=== PATIENT | female | born 1965 | race Caucasian/White ===

== ENCOUNTER 2016-12-18 13:02 | Emergency (ER) | payer MEDICAID ==
--- NOTE | 2016-12-18 13:27 | EDPHY ---
H & P Time Seen by Provider: 12/18/16 13:18 HPI/ROS: CHIEF COMPLAINT: Hematemesis HISTORY OF PRESENT ILLNESS: This patient is a 51 year old female with history of peptic ulcer disease who presents to the Emergency Department complaining of acute hematemesis presenting one week prior to the arrival. She describes the first episode as mostly bright red blood which has since subsided to minimal blood mixed with undigested food. She was prescribed Protonix and Zofran by her PCP last week which has helped to improve the frequency of her vomiting and lessened the amount of blood in her vomit. Her last vomiting episode was yesterday with minimal blood. She also reports one episode of black diarrhea yesterday and today. She denies any additional complaints. 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 She has no additional pertinent medical history. REVIEW OF SYSTEMS: Constitutional: No fever, no chills Eyes: No visual changes ENT: No sore throat Respiratory: No cough, no shortness of breath Cardiac: No chest pain Gastrointestinal: +nausea, +vomiting blood, +diarrhea, +black stools, no abdominal pain Genitourinary: No hematuria, no dysuria Musculoskeletal: No leg pain or swelling Skin: No rash Neurological: No headache, no numbness, no weakness Psychiatric: No depression Past Medical/Surgical History: Peptic ulcer disease, hypertension Social History: , in the Smoking Status: Former smoker Physical Exam: General Appearance: Alert, no distress Eyes: Pupils equal and round, no conjunctival pallor or injection ENT, Mouth: Mucous membranes moist Neck: Normal inspection Respiratory: Lungs are clear to auscultation Cardiovascular: Regular rate and rhythm Gastrointestinal: Abdomen is soft with epigastric tenderness Rectal: Brown stool Neurological: A&O, nonfocal, normal gait Skin: Warm and dry, no rash Extremities: Nontender, no pedal edema Psychiatric: Mood and affect normal Constitutional: Initial Vital Signs Temperature (C) 36.8 C 12/18/16 13:14 Heart Rate 83 12/18/16 13:14 Respiratory Rate 16 12/18/16 13:14 Blood Pressure 136/80 H 12/18/16 13:14 O2 Sat (%) 98 12/18/16 13:14 O2 Delivery Mode Room Air Allergies/Adverse Reactions: codeine [Codeine] Allergy (Severe, Verified 09/05/13 07:18) THROAT SWELLING diazepam [From Valium] Allergy (Severe, Verified 09/05/13 07:18) SWELLING meperidine HCl [From Demerol] Allergy (Severe, Verified 09/05/13 07:18) SWELLING iodine Allergy (Intermediate, Verified 09/05/13 07:18) Hives Penicillins Allergy (Intermediate, Verified 09/05/13 07:18) Hives morphine Allergy (Unknown, Verified 09/05/13 07:18) Home Medications: Medication Instructions Recorded Albuterol Mdi 12/08/12 Zoloft Unk 12/08/12 Control 05/06/13 Trazadone 05/06/13 predniSONE 3 tab PO .DAILY #21 tab 05/06/13 Depo-Provera 09/05/13 Hydrocodone Bit/Acetaminophen 1 tab PO Q4-6PRN PRN #10 tab 09/05/13 [Vicodin 5/500] Medical Decision Making ED Course/Re-evaluation: This 51 year old female with history of peptic ulcer disease presents with one week of hematemesis described as "bright red blood" decreasing in severity over time with use of Protonix as prescribed by her PCP. She has not vomited today. She reports two episodes of black stool, though rectal exam reveals brown stool at time of presentation. She has epigastric tenderness on exam but no additional abnormal findings. Will proceed with labs. Stool occult blood screen obtained and is negative. Labs obtained: Hematocrit at 35.6. There is no evidence of active bleeding with negative stool occult and no vomiting today. Given this, I believe that patient is safe to be discharged home with strict return precautions and instructions to follow-up with her PCP as planned tomorrow. I discussed this treatment plan with the patient who expresses agreement to this and will be discharged home in good condition. Differential Diagnosis: The differential diagnosis for the patient's hematemesis included but was not limited to peptic ulcer disease, esophagitis, or gastritis. - Data Points Laboratory Results: Laboratory Results 12/18/16 13:40 12/18/16 12/18/16 12/18/16 13:40 13:40 13:30 WBC 6.63 10^3/uL 10^3/uL (3.80-9.50) RBC 3.87 10^6/uL L 10^6/uL (4.18-5.33) Hgb 11.7 g/dL L g/dL (12.6-16.3) Hct 35.6 % L % (38.0-47.0) MCV 92.0 fL fL (81.5-99.8) MCH 30.2 pg pg (27.9-34.1) MCHC 32.9 g/dL g/dL (32.4-36.7) RDW 13.8 % % (11.5-15.2) Plt Count 229 10^3/uL 10^3/uL (150-400) MPV 9.8 fL fL (8.7-11.7) Neut % (Auto) 69.8 % % (39.3-74.2) Lymph % (Auto) 22.9 % % (15.0-45.0) Stanly % (Auto) 5.9 % % (4.5-13.0) Eos % (Auto) 0.6 % % (0.6-7.6) Baso % (Auto) 0.3 % % (0.3-1.7) Nucleat RBC Rel Count 0.0 % % (0.0-0.2) Absolute Neuts (auto) 4.63 10^3/uL 10^3/uL (1.70-6.50) Absolute Lymphs (auto) 1.52 10^3/uL 10^3/uL (1.00-3.00) Absolute Monos (auto) 0.39 10^3/uL 10^3/uL (0.30-0.80) Absolute Eos (auto) 0.04 10^3/uL 10^3/uL (0.03-0.40) Absolute Basos (auto) 0.02 10^3/uL 10^3/uL (0.02-0.10) Absolute Nucleated RBC 0.00 10^3/uL 10^3/uL (0-0.01) Immature Gran % 0.5 % % (0.0-1.1) Immature Gran # 0.03 10^3/uL 10^3/uL (0.00-0.10) Sodium Pending Potassium Pending Chloride Pending Carbon Dioxide Pending Anion Gap Pending BUN Pending Creatinine Pending Estimated GFR Pending Glucose Pending Calcium Pending Stool Occult Bld Scrn NEGATIVE (NEGATIVE) Departure - Departure Disposition: Home, Routine, Self-Care Clinical Impression: Peptic ulcer disease Condition: Good Instructions: Peptic Ulcer (ED) Additional Instructions: 1. Continue to take your Protonix as prescribed to prevent worsening of your peptic ulcer disease. 2. Take Zofran as prescribed, as needed for nausea and vomiting. 3. Follow-up with Aurora Frank in her office tomorrow as planned. 4. Return to the Emergency Department with increasing amounts of blood in stool or vomit, lightheadedness, weakness, or other serious concerns. Referrals: Aurora Frank PA [Primary Care Provider] - As per Instructions Report Scribed for: Kelsie Singh Report Scribed by: Sarah Barr Date of Report: 12/18/16 Time of Report: 13:22 Physician Review and Approval Statement: 12/18/16 13:22 Portions of this note were transcribed by a medical assistant secretary. I personally performed a history, physical exam, medical decision making, and confirmed accuracy of information the transcribed note.
[2016-12-18 13:52] LABS: % IMMATURE GRANULYOCYTES 0.5 % (0.0-1.1); ABSOLUTE IMMATURE GRANULOCYTES 0.03 10^3/uL (0.00-0.10); ADD DIFF? NO; ADD MORPH? NO; ADD SCAN? NO; ATYPICAL LYMPHOCYTE FLAG 0 (0-99); FRAGMENT RBC FLAG 0 (0-99); HEMATOCRIT 35.6 % (38.0-47.0); HEMOGLOBIN 11.7 g/dL (12.6-16.3); LEFT SHIFT FLG 0 (0-99); LIPEMIA HEMOLYSIS FLAG 80 (0-99); MEAN CELL HEMOGLOBIN 30.2 pg (27.9-34.1); MEAN CELL HEMOGLOBIN CONCENTR. 32.9 g/dL (32.4-36.7); MEAN PLATELET VOLUME 9.8 fL (8.7-11.7); PLATELET CLUMPS FLAG 0 (0-99); PLATELET COUNT 229 10^3/uL (150-400); RED BLOOD CELL COUNT 3.87 10^6/uL (4.18-5.33); RED CELL DISTRIBUTION WIDTH 13.8 % (11.5-15.2)
[2016-12-18 14:04] LABS: ANION GAP 9 mEq/L (8-16); CARBON DIOXIDE 26 mEq/l (22-31); CHLORIDE 106 mEq/L (97-110); CREATININE 0.9 mg/dL (0.6-1.0); GLOMERULAR FILTRATION RATE > 60; GLUCOSE 98 mg/dL (70-100); SODIUM 141 mEq/L (134-144)
[2016-12-18 14:16] VITALS: BP 119/65; PULSE 64; RESP 17; TEMP 98.8; O2SAT 96
== END 2016-12-18 14:16 | disposition home or self-care (01) ==
DX: K27.9 Peptic ulcer, site unspecified, unspecified as acute or chronic, without hemorrhage or perforation (principal); I10 Essential (primary) hypertension; Z87.891 Personal history of nicotine dependence

== ENCOUNTER 2016-12-19 15:31 | Emergency (ER) | payer MEDICAID ==
--- NOTE | 2016-12-19 15:47 | EDPHY ---
H & P <Jacques Olmedo - Last Filed: 12/19/16 23:37> Source: Patient <Luis Armando Deng - Last Filed: 12/20/16 05:38> <Adrian Tian - Last Filed: 12/20/16 10:49> Stated Complaint: Suicide attempt Source: Patient, Old records - Medical/Surgical History Hx Asthma: Yes Hx Chronic Respiratory Disease: Yes Hx Diabetes: No Hx Cardiac Disease: Yes Hx Renal Disease: No Hx Cirrhosis: No Hx Alcoholism: No Hx HIV/AIDS: No Hx Splenectomy or Spleen Trauma: No Other PMH: medical Mitral valve infection. surgery , PUD,. PTSD - Social History Smoking Status: Former smoker <Nora Fish - Last Filed: 12/21/16 12:21> Time Seen by Provider: 12/19/16 15:32 HPI/ROS: CHIEF COMPLAINT: SI attempt, ibuprofen OD HISTORY OF PRESENT ILLNESS: This is a 49-year-old female presenting to the emergency department via EMS. EMS reports patient was at her primary care appointment at [facility] she reported to her PCP she took 40 tablets of ibuprofen at 1400, with hearing voices and having visions. Patient was seen here yesterday for peptic ulcer, but had continued to take ibuprofen. Patient said she had headache and she initially was trying to resolve the headache but at the same time she said that if she at that time she did care. Patient denies any abdominal pain no vomiting diarrhea. History of PTSD peptic ulcer REVIEW OF SYSTEMS: Constitutional: No fever, no chills. Eyes: No discharge. ENT: No sore throat. Cardiovascular: No chest pain, no palpitations. Respiratory: No cough, no shortness of breath. Gastrointestinal: No abdominal pain, no vomiting. Genitourinary: No hematuria. Musculoskeletal: No back pain. Skin: No rashes. Neurological: headache. (Nora Fish) - Physical Exam Exam: General Appearance: Alert, no distress. Eyes: Pupils equal and round no pallor or injection. ENT, Mouth: Mucous membranes moist. Respiratory: There are no retractions, lungs are clear to auscultation. Cardiovascular: Regular rate and rhythm. Gastrointestinal: Abdomen is soft and nontender, no masses, bowel sounds normal. Neurological: No focal deficits Skin: Warm and dry, no rashes. Musculoskeletal: Neck is supple nontender. Extremities: symmetrical, full range of motion. Psychiatric: Patient is oriented X 3, there is no agitation. Patient does report visual and auditory hallucinations due to her PTSD (Nora Fish) Constitutional: Initial Vital Signs Temperature (C) 37 C 12/19/16 16:00 Heart Rate 68 12/19/16 16:00 Respiratory Rate 16 12/19/16 16:00 Blood Pressure 136/78 H 12/19/16 16:00 O2 Sat (%) 93 12/19/16 16:00 O2 Delivery Mode Room Air Allergies/Adverse Reactions: codeine [Codeine] Allergy (Severe, Verified 09/05/13 07:18) THROAT SWELLING diazepam [From Valium] Allergy (Severe, Verified 09/05/13 07:18) SWELLING meperidine HCl [From Demerol] Allergy (Severe, Verified 09/05/13 07:18) SWELLING iodine Allergy (Intermediate, Verified 09/05/13 07:18) Hives Penicillins Allergy (Intermediate, Verified 09/05/13 07:18) Hives morphine Allergy (Unknown, Verified 09/05/13 07:18) Home Medications: Medication Instructions Recorded Flexeril 10 MG (*) 12/20/16 Lipitor 40 mg (*) 12/20/16 Metoprolol Succinate Xr 12/20/16 Prazosin HCl 12/20/16 Proair Hfa 12/20/16 Protonix 40mg (*) BID 12/20/16 Prozac 20 MG (*) 12/20/16 traZODone 150MG (*) 12/20/16 Medical Decision Making <Jacques Olmedo - Last Filed: 12/19/16 23:37> <Luis Armando Deng - Last Filed: 12/20/16 05:38> <Adrian Tian - Last Filed: 12/20/16 10:49> <Nora Fish - Last Filed: 12/21/16 12:21> ED Course/Re-evaluation: 1739: No acute events overnight. Patient has been, cooperative. (Luis Armando Deng) 0700 care assumed by me from Dr. Deng. Please note that his time step is incorrect his marked is 1739 was actually 0539. Patient is a ibuprofen overdose , medically cleared, on M1 hold. Patient has been evaluated awaiting placement. 1050 patient has been accepted to [facility] under Dr. Woodall. I have completed the EMTALA. No issues during my care this patient. (Adrian Tian) Discussed the plan of care: Med clearance and psych evaluation 1630: Patient medically cleared for psych evaluation. Patient calm no apparent distress no agitation 1920: Waiting EPS evaluation (Nora Fish) Differential Diagnosis: Other differential diagnosis considered but not limited to Tylenol ingestion, homicidal ideation and acute renal failure (Nora Fish) Other Provider: PHYSICIAN DOCUMENTATION: The patient was evaluated and managed by the nurse practitioner and myself. I have reviewed the chart and agree with the findings and plan of care as documented. In addition, I examined the patient myself at 2310. History confirmed as took multiple ibuprofen, had a hearing for her SSDI, was feeling increasingly psychotic hearing voices and seeing visions (like flashbacks), suicidal thoughts with overdose as plan. Physical findings as follows: calm, cooperative. 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 Deng at this time with placement pending. 2340: Discussed ibuprofen OD, no need for additional labs or investigation at this time, repeat creatnine in 2 days; [facility] case # [id number]. I am the secondary supervising physician. (Jacques Olmedo) - Data Points Laboratory Results: Laboratory Results 12/19/16 15:30 12/19/16 15:30 Medications Given: Discontinued Medications Atorvastatin Calcium (Lipitor) 40 mg PO EDNOW ONE Stop: 12/20/16 05:55 Last Admin: 12/20/16 06:17 Dose: 40 mg Cyclobenzaprine HCl (Flexeril) 10 mg PO EDNOW ONE Stop: 12/20/16 05:56 Last Admin: 12/20/16 06:17 Dose: 10 mg Fluoxetine HCl (Prozac) 20 mg PO ONCE ONE Stop: 12/20/16 06:03 Last Admin: 12/20/16 06:10 Dose: 20 mg Metoprolol Succinate (Toprol Xl) 25 mg PO EDNOW ONE Stop: 12/20/16 05:55 Last Admin: 12/20/16 06:17 Dose: 25 mg Ondansetron HCl (Zofran Odt) 4 mg PO EDNOW ONE Stop: 12/19/16 22:19 Last Admin: 12/19/16 22:18 Dose: 4 mg Ondansetron HCl (Zofran Odt) 4 mg PO EDNOW ONE Stop: 12/20/16 08:29 Last Admin: 12/20/16 08:38 Dose: 4 mg Pantoprazole Sodium (Protonix) 40 mg PO EDNOW ONE Stop: 12/20/16 00:08 Last Admin: 12/20/16 00:35 Dose: 40 mg Pantoprazole Sodium (Protonix) 40 mg PO EDNOW ONE Stop: 12/20/16 05:55 Last Admin: 12/20/16 06:10 Dose: 40 mg Prazosin HCl (Minipress) 6 mg PO BID YANELI Stop: 06/18/17 00:14 Last Admin: 12/20/16 00:35 Dose: 6 mg Trazodone HCl (Trazodone) 150 mg PO EDNOW ONE Stop: 12/20/16 00:31 Last Admin: 12/20/16 00:35 Dose: 150 mg Departure <Jacques Olmedo - Last Filed: 12/19/16 23:37> <Luis Armando Deng - Last Filed: 12/20/16 05:38> <Adrian Tian - Last Filed: 12/20/16 10:49> <Nora Fish - Last Filed: 12/21/16 12:21> - Departure Disposition: Other Psych, Not [place] Clinical Impression: Suicidal ideation, PTSD (post-traumatic stress disorder) Condition: Good Additional Instructions: [facility] recommends a BUN and creatinine to check kidney function be drawn in 48 hours after the initial ingestion. This would be Thursday afternoon on December 21. Referrals: Patient,NotPresent [Unknown] - As per Instructions
[2016-12-19 15:56] LABS: % IMMATURE GRANULYOCYTES 0.2 % (0.0-1.1); ABSOLUTE IMMATURE GRANULOCYTES 0.01 10^3/uL (0.00-0.10); ADD DIFF? NO; ADD MORPH? NO; ADD SCAN? NO; ATYPICAL LYMPHOCYTE FLAG 10 (0-99); FRAGMENT RBC FLAG 0 (0-99); HEMATOCRIT 37.2 % (38.0-47.0); HEMOGLOBIN 12.3 g/dL (12.6-16.3); LEFT SHIFT FLG 0 (0-99); LIPEMIA HEMOLYSIS FLAG 80 (0-99); MEAN CELL HEMOGLOBIN 30.6 pg (27.9-34.1); MEAN CELL HEMOGLOBIN CONCENTR. 33.1 g/dL (32.4-36.7); MEAN CELL VOLUME 92.5 fL (81.5-99.8); PLATELET CLUMPS FLAG 0 (0-99); PLATELET COUNT 232 10^3/uL (150-400); RED BLOOD CELL COUNT 4.02 10^6/uL (4.18-5.33); RED CELL DISTRIBUTION WIDTH 13.8 % (11.5-15.2)
[2016-12-19 16:00] LABS: ANION GAP 8 mEq/L (8-16); CALCIUM 9.5 mg/dL (8.5-10.4); CARBON DIOXIDE 25 mEq/l (22-31); CHLORIDE 106 mEq/L (97-110); CREATININE 0.8 mg/dL (0.6-1.0); ETHANOL SERUM < 10 mg/dL (0-10); GLOMERULAR FILTRATION RATE > 60; GLUCOSE 88 mg/dL (70-100); POTASSIUM 4.4 mEq/L (3.5-5.2); SODIUM 139 mEq/L (134-144)
[2016-12-19 16:18] LABS: SALICYLATE < 1.0 mg/dL (2.0-20.0)
[2016-12-19] MEDS ORDERED: ONDANSETRON DISINTEGRATING 4 MG TAB ONE (22:16)
[2016-12-19] MEDS ORDERED: ONDANSETRON DISINTEGRATING 4 MG TAB PO ONE (22:18)
[2016-12-20] MEDS ORDERED: PANTOPRAZOLE SODIUM 40 MG TAB PO ONE ×2 (00:07→05:54)
[2016-12-20] MEDS ORDERED: PRAZOSIN HCL 1 MG CAP PO SCH (00:15)
[2016-12-20] MEDS ORDERED: ATORVASTATIN CALCIUM 40 MG TAB PO ONE (05:54)
[2016-12-20] MEDS ORDERED: METOPROLOL SUCCINATE XR 25 MG TAB PO ONE (05:54)
[2016-12-20] MEDS ORDERED: CYCLOBENZAPRINE 10 MG TAB PO ONE (05:55)
[2016-12-20] MEDS ORDERED: FLUOXETINE 4 MG/ML 30 ML BOTTLE PO SCH (06:00)
[2016-12-20] MEDS ORDERED: FLUoxetine 20 MG CAP PO ONE (06:02)
[2016-12-20] MEDS ORDERED: ONDANSETRON DISINTEGRATING 4 MG TAB PO ONE (08:28)
[2016-12-20 13:45] VITALS: BP 98/56; PULSE 67; RESP 20; TEMP 98.6; O2SAT 97
== END 2016-12-20 13:46 ==
LOC: EDUNIT#
DX: T39.312A Poisoning by propionic acid derivatives, intentional self-harm, initial encounter (principal); F43.10 Post-traumatic stress disorder, unspecified; J45.909 Unspecified asthma, uncomplicated; Z87.891 Personal history of nicotine dependence
CPT/HCPCS: 80305; G0480

== ENCOUNTER 2017-01-12 13:22 | Emergency (ER) | payer MEDICAID ==
--- NOTE | 2017-01-12 14:05 | EDPHY ---
H & P Smoking Status: Former smoker Time Seen by Provider: 01/12/17 13:59 HPI/ROS: CHIEF COMPLAINT: Suicidal ideation HISTORY OF PRESENT ILLNESS: Patient was admitted at [facility] for PTSD and suicidal ideation and discharged on December 26 of this year. She arrives with command hallucinations and hearing voices telling her to kill herself. She does own guns but recently she gave them to her son. Symptoms are severe. Not associated with actual overdose or self injury. Worse over the past 2-3 days. REVIEW OF SYSTEMS: Eye: no change in vision ENT: no sore throat Cardiac: no chest pain or syncope Pulmonary: no cough or SOB Abdomen: Patient had recent vomiting with some streaks of blood. No melena. No rohini hematemesis. Musculoskeletal: no back pain Skin: no rash Neuro: no headache Constitutional: no fever : no urinary symptoms A comprehensive 10 point review of systems is otherwise negative aside from elements mentioned in the history of present illness. PAST MEDICAL HISTORY: PTSD and shoulder surgery. Social history: Tobacco smoker. General Appearance: Alert and conversant, cooperative. Eyes: No scleral icterus. ENT, Mouth: Normal mucous membranes. Respiratory: Normal respiratory effort, breath sounds equal, lungs are clear to auscultation. Cardiovascular: Regular rate and rhythm. Gastrointestinal: Abdomen is soft and non tender. Neurological: Alert and oriented x3. Normally conversant. Face symmetric, normal movement and sensation in all extremities. Skin: Warm and dry, no rashes. No laceration or injury. Musculoskeletal: No peripheral edema and no joint swelling. Psychiatric: Not agitated. Suicidal ideation. Emergency Department course/MDM: Placed on a mental health hold by myself for suicidal ideation. Hematocrit noted is stable from December of this year. More likely Stephanie-Prasad from vomiting, doubt acute severe upper GI bleed. (Jacques Olmedo) Constitutional: Initial Vital Signs Temperature (C) 36.8 C 01/12/17 13:41 Heart Rate 98 01/12/17 13:41 Respiratory Rate 18 01/12/17 13:41 Blood Pressure 117/78 01/12/17 13:41 O2 Sat (%) 94 01/12/17 13:41 O2 Delivery Mode Room Air Allergies/Adverse Reactions: codeine [Codeine] Allergy (Severe, Verified 09/05/13 07:18) THROAT SWELLING diazepam [From Valium] Allergy (Severe, Verified 09/05/13 07:18) SWELLING meperidine HCl [From Demerol] Allergy (Severe, Verified 09/05/13 07:18) SWELLING iodine Allergy (Intermediate, Verified 09/05/13 07:18) Hives Penicillins Allergy (Intermediate, Verified 09/05/13 07:18) Hives morphine Allergy (Unknown, Verified 09/05/13 07:18) Home Medications: Medication Instructions Recorded Metoprolol Succinate Xr 12/20/16 Prazosin HCl 12/20/16 Proair Hfa 12/20/16 traZODone 150MG (*) 12/20/16 FLUoxetine 01/12/17 GABAPENTIN 01/12/17 Ondansetron 01/12/17 QUEtiapine FUMARATE 01/12/17 Medical Decision Making ED Course/Re-evaluation: Patient has remained stable. (Charles Hannah) Took over care of this patient at 7:00 a.m.. The patient is on an M1 hold for PTSD and suicidal ideation. The patient has been evaluated and is to be admitted. Destination for admission unknown at this time. 3:30 p.m., care transferred to Dr. Vernon Delcid. Patient still awaits placement. [facility] destination [facility]. (Clover Hernandez) 7:00 a.m. care transferred to Dr. Clover Hernandez. (Pato Kenney) Differential Diagnosis: 10:15 p.m.. Patient has been evaluated by mental health. They are looking for and ATU bed for this patient (Charles Hannah) Differential diagnosis considered for depression including functional and major depression, situational depression, medication side effect, drugs and alcohol abuse. (Jacques Olmedo) Other Provider: I assumed care of the patient at 3:30 p.m. with psychiatric disposition pending. Update at 4:30 p.m.: The patient has been accepted for inpatient psychiatric hospitalization at [facility] by Leana Davidson. I have filled out the EMTALA transfer form. (Davon Delcid) Care Turn Over: Dr. Kenney at 11:35 p.m. (Charles Hannah) - Data Points Laboratory Results: Laboratory Results 01/12/17 13:56 01/12/17 13:56 Medications Given: Discontinued Medications Nicotine (Nicoderm Cq) 21 mg TD EDNOW ONE Stop: 01/12/17 14:09 Last Admin: 01/12/17 14:54 Dose: 21 mg Departure - Departure Disposition: Other Psych, Not [place] Clinical Impression: Suicidal ideation, PTSD (post-traumatic stress disorder), Acute psychosis Condition: Fair Referrals: Aurora Frank PA [Primary Care Provider] - As per Instructions
[2017-01-12] MEDS ORDERED: NICOTINE 21 MG/24 HR PATCH TD ONE (14:08)
[2017-01-12 14:18] LABS: % IMMATURE GRANULYOCYTES 0.4 % (0.0-1.1); ABSOLUTE IMMATURE GRANULOCYTES 0.03 10^3/uL (0.00-0.10); ADD DIFF? NO; ADD MORPH? NO; ADD SCAN? NO; ATYPICAL LYMPHOCYTE FLAG 0 (0-99); FRAGMENT RBC FLAG 0 (0-99); HEMATOCRIT 37.7 % (38.0-47.0); HEMOGLOBIN 12.1 g/dL (12.6-16.3); LEFT SHIFT FLG 0 (0-99); LIPEMIA HEMOLYSIS FLAG 80 (0-99); MEAN CELL HEMOGLOBIN 30.9 pg (27.9-34.1); MEAN CELL HEMOGLOBIN CONCENTR. 32.1 g/dL (32.4-36.7); MEAN CELL VOLUME 96.4 fL (81.5-99.8); MEAN PLATELET VOLUME 9.3 fL (8.7-11.7); PLATELET CLUMPS FLAG 10 (0-99); PLATELET COUNT 247 10^3/uL (150-400); RED BLOOD CELL COUNT 3.91 10^6/uL (4.18-5.33); RED CELL DISTRIBUTION WIDTH 13.8 % (11.5-15.2)
[2017-01-12 14:31] LABS: ANION GAP 8 mEq/L (8-16); CALCIUM 8.8 mg/dL (8.5-10.4); CARBON DIOXIDE 27 mEq/l (22-31); CHLORIDE 105 mEq/L (97-110); CREATININE 0.9 mg/dL (0.6-1.0); ETHANOL SERUM < 10 mg/dL (0-10); GLOMERULAR FILTRATION RATE > 60; GLUCOSE 84 mg/dL (70-100); POTASSIUM 4.2 mEq/L (3.5-5.2); SALICYLATE < 1.0 mg/dL (2.0-20.0); SODIUM 140 mEq/L (134-144)
[2017-01-13 17:31] VITALS: BP 119/82; PULSE 70; RESP 18; TEMP 98.6; O2SAT 96
== END 2017-01-13 17:52 ==
DX: R45.851 Suicidal ideations (principal); F43.10 Post-traumatic stress disorder, unspecified; F29 Unspecified psychosis not due to a substance or known physiological condition; Z87.891 Personal history of nicotine dependence
CPT/HCPCS: 80305; G0480

== ENCOUNTER 2017-01-19 20:26 | Emergency (ER) | payer MEDICAID ==
--- NOTE | 2017-01-19 20:37 | EDPHY ---
H & P Source: Patient, EMS - Medical/Surgical History Hx Asthma: Yes Hx Chronic Respiratory Disease: Yes Hx Diabetes: No Hx Cardiac Disease: Yes Hx Renal Disease: No Hx Cirrhosis: No Hx Alcoholism: No Hx HIV/AIDS: No Hx Splenectomy or Spleen Trauma: No Other PMH: medical Mitral valve infection. surgery , PUD,. PTSD, shoulder surg. - Social History Smoking Status: Former smoker HPI/ROS: HPI CHIEF COMPLAINT: M1 hold, agitation, suicidal ideation HISTORY OF PRESENT ILLNESS: This patient is a 51-year-old female significant past medical history for PTSD, anxiety, major depression disorder, she presents emergency room after she was seen and evaluated at [facility] in got agitated and was sent to the [facility] where she had evaluation was placed on M1 hold. She does tell me that she was agitated angry earlier she has been out of her recent psychiatric medications. She now presents emergency room by EMS stating that she denies feeling suicidal. She does tell me she got agitated and angry earlier. Upon arrival here she is requesting something for anxiety. Past Medical History: PTSD, anxiety, major depression disorder Past Surgical History: No recent surgery Social History: Smokes tobacco daily, denies alcohol or illicit drugs Family History: Noncontributory ROS REVIEW OF SYSTEMS: A comprehensive 10 point review of systems is otherwise negative aside from elements mentioned in the history of present illness. Exam Constitutional triage nursing summary reviewed, vital signs reviewed, awake/ alert. Eyes normal conjunctivae and sclera, EOMI, PERRLA. HENT normal inspection, atraumatic, moist mucus membranes, no epistaxis, neck supple/ no meningismus, no raccoon eyes. Respiratory clear to auscultation bilaterally, normal breath sounds, no respiratory distress, no wheezing. Cardiovascular rate normal, regular rhythm, no murmur, no edema, distal pulses normal. Gastrointestinal soft, non-tender, no rebound, no guarding, normal bowel sounds, no distension, no pulsatile mass. Genitourinary no CVA tenderness. Musculoskeletal no midline vertebral tenderness, full range of motion, no calf swelling, no tenderness of extremities, no meningismus, good pulses, neurovascularly intact. Skin pink, warm, & dry, no rash, skin atraumatic. Neurologic awake, alert and oriented x 3, AAOx3, moves all 4 extremities equally, motor intact, sensory intact, CN II-XII intact, normal cerebellar, normal vision, normal speech. Psychiatric normal mood/affect. Heme/Lymph/Immune no lymphadenopathy. Differential Diagnosis: Includes but is not limited to in a particular order, depression, suicidal ideation, acute anxiety, mood disorder, anger issues Medical Decision Making: Plan for patient IV establishment for blood draw, medical clearance after blood work, she is on M1 hold she will need mental health evaluation. Re-evaluation: 2037: Patient signed over to Dr. Kenney at 9:00 p.m. shift change. Patient pending lab work. (Luis Armando Deng) Constitutional: Initial Vital Signs Temperature (C) 37.4 C 01/19/17 20:39 Heart Rate 78 01/19/17 20:39 Respiratory Rate 17 01/19/17 20:39 Blood Pressure 124/94 H 01/19/17 20:39 O2 Sat (%) 96 01/19/17 20:39 O2 Delivery Mode Room Air Allergies/Adverse Reactions: codeine [Codeine] Allergy (Severe, Verified 01/19/17 20:39) THROAT SWELLING diazepam [From Valium] Allergy (Severe, Verified 01/19/17 20:39) SWELLING meperidine HCl [From Demerol] Allergy (Severe, Verified 01/19/17 20:39) SWELLING iodine Allergy (Intermediate, Verified 01/19/17 20:39) Hives Penicillins Allergy (Intermediate, Verified 01/19/17 20:39) Hives morphine Allergy (Unknown, Verified 01/19/17 20:39) Home Medications: Medication Instructions Recorded Metoprolol Succinate Xr 12/20/16 Prazosin HCl 12/20/16 Proair Hfa 12/20/16 traZODone 150MG (*) 12/20/16 FLUoxetine 01/12/17 GABAPENTIN 01/12/17 Ondansetron 01/12/17 QUEtiapine FUMARATE 01/12/17 Medical Decision Making ED Course/Re-evaluation: 11:15 p.m. care transferred to Dr. Tian (Pato Kenney) [id number] care assumed by me from Dr. Kenney pending mental health evaluation. [id number] patient has been accepted to [facility] by Dr. Moreno. I have completed the EMTALA. (Adrian Tian) - Data Points Laboratory Results: Laboratory Results 01/19/17 20:42 01/19/17 20:42 01/19/17 01/19/17 01/19/17 22:20 20:42 20:42 WBC 7.99 10^3/uL 10^3/uL (3.80-9.50) RBC 4.17 10^6/uL L 10^6/uL (4.18-5.33) Hgb 12.9 g/dL g/dL (12.6-16.3) Hct 39.5 % % (38.0-47.0) MCV 94.7 fL fL (81.5-99.8) MCH 30.9 pg pg (27.9-34.1) MCHC 32.7 g/dL g/dL (32.4-36.7) RDW 14.1 % % (11.5-15.2) Plt Count 274 10^3/uL 10^3/uL (150-400) MPV 9.3 fL fL (8.7-11.7) Neut % (Auto) 65.6 % % (39.3-74.2) Lymph % (Auto) 25.9 % % (15.0-45.0) Mcpherson % (Auto) 6.6 % % (4.5-13.0) Eos % (Auto) 1.1 % % (0.6-7.6) Baso % (Auto) 0.4 % % (0.3-1.7) Nucleat RBC Rel Count 0.0 % % (0.0-0.2) Absolute Neuts (auto) 5.24 10^3/uL 10^3/uL (1.70-6.50) Absolute Lymphs (auto) 2.07 10^3/uL 10^3/uL (1.00-3.00) Absolute Monos (auto) 0.53 10^3/uL 10^3/uL (0.30-0.80) Absolute Eos (auto) 0.09 10^3/uL 10^3/uL (0.03-0.40) Absolute Basos (auto) 0.03 10^3/uL 10^3/uL (0.02-0.10) Absolute Nucleated RBC 0.00 10^3/uL 10^3/uL (0-0.01) Immature Gran % 0.4 % % (0.0-1.1) Immature Gran # 0.03 10^3/uL 10^3/uL (0.00-0.10) Sodium 138 mEq/L mEq/L (134-144) Potassium 3.5 mEq/L mEq/L (3.5-5.2) Chloride 104 mEq/L mEq/L (97-110) Carbon Dioxide 25 mEq/l mEq/l (22-31) Anion Gap 9 mEq/L mEq/L (8-16) BUN 14 mg/dL mg/dL (7-23) Creatinine 0.8 mg/dL mg/dL (0.6-1.0) Estimated GFR > 60 Glucose 96 mg/dL mg/dL (70-100) Calcium 9.5 mg/dL mg/dL (8.5-10.4) Salicylates < 1.0 mg/dL L mg/dL (2.0-20.0) Urine Opiates Screen NEGATIVE (NEGATIVE) Acetaminophen < 10 mcg/mL L mcg/mL (10.0-30.0) Urine Barbiturates NEGATIVE (NEGATIVE) Ur Phencyclidine Scrn NEGATIVE (NEGATIVE) Ur Amphetamine Screen NEGATIVE (NEGATIVE) U Benzodiazepines Scrn NEGATIVE (NEGATIVE) Urine Cocaine Screen NEGATIVE (NEGATIVE) U Marijuana (THC) Screen NEGATIVE (NEGATIVE) Ethyl Alcohol < 10 mg/dL mg/dL (0-10) Departure - Departure Disposition: Other Psych, Not [place] Clinical Impression: Depression Qualifiers: Depression Type: major depressive disorder Major depression recurrence: single episode Active/Remission status: currently active Major depression episode severity: mild Qualified Code(s): F32.0 - Major depressive disorder, single episode, mild Condition: Good Instructions: Depression (ED) Referrals: Aurora Frank PA [Primary Care Provider] - As per Instructions
[2017-01-19 20:48] LABS: % IMMATURE GRANULYOCYTES 0.4 % (0.0-1.1); ABSOLUTE IMMATURE GRANULOCYTES 0.03 10^3/uL (0.00-0.10); ADD DIFF? NO; ADD MORPH? NO; ADD SCAN? NO; ATYPICAL LYMPHOCYTE FLAG 0 (0-99); FRAGMENT RBC FLAG 0 (0-99); HEMATOCRIT 39.5 % (38.0-47.0); HEMOGLOBIN 12.9 g/dL (12.6-16.3); LEFT SHIFT FLG 0 (0-99); LIPEMIA HEMOLYSIS FLAG 80 (0-99); MEAN CELL HEMOGLOBIN 30.9 pg (27.9-34.1); MEAN CELL HEMOGLOBIN CONCENTR. 32.7 g/dL (32.4-36.7); MEAN CELL VOLUME 94.7 fL (81.5-99.8); MEAN PLATELET VOLUME 9.3 fL (8.7-11.7); PLATELET CLUMPS FLAG 0 (0-99); PLATELET COUNT 274 10^3/uL (150-400); RED BLOOD CELL COUNT 4.17 10^6/uL (4.18-5.33); RED CELL DISTRIBUTION WIDTH 14.1 % (11.5-15.2)
[2017-01-19 21:05] LABS: ANION GAP 9 mEq/L (8-16); CALCIUM 9.5 mg/dL (8.5-10.4); CARBON DIOXIDE 25 mEq/l (22-31); CHLORIDE 104 mEq/L (97-110); CREATININE 0.8 mg/dL (0.6-1.0); GLOMERULAR FILTRATION RATE > 60; GLUCOSE 96 mg/dL (70-100); POTASSIUM 3.5 mEq/L (3.5-5.2); SODIUM 138 mEq/L (134-144)
[2017-01-19 21:08] LABS: ETHANOL SERUM < 10 mg/dL (0-10); SALICYLATE < 1.0 mg/dL (2.0-20.0)
[2017-01-20 05:25] VITALS: RESP 16; TEMP 97.9
[2017-01-20] MEDS ORDERED: NICOTINE 21 MG/24 HR PATCH TD ONE (07:39)
[2017-01-20 07:44] VITALS: BP 121/73; PULSE 85; O2SAT 98
== END 2017-01-20 07:34 ==
LOC: EDUNIT# → EDSEX → EDBD
DX: F32.0 Major depressive disorder, single episode, mild (principal); J45.909 Unspecified asthma, uncomplicated; Z87.891 Personal history of nicotine dependence
CPT/HCPCS: 80305; G0480

== ENCOUNTER 2017-01-26 23:25 | Emergency (ER) | payer MEDICAID ==
[2017-01-26] MEDS ORDERED: OLANZapine 10 MG/2 ML VIAL IM ONE (23:26)
--- NOTE | 2017-01-26 23:32 | EDPHY ---
H & P Source: Patient - Medical/Surgical History Hx Asthma: Yes Hx Chronic Respiratory Disease: Yes Hx Diabetes: No Hx Cardiac Disease: Yes Hx Renal Disease: No Hx Cirrhosis: No Hx Alcoholism: No Hx HIV/AIDS: No Hx Splenectomy or Spleen Trauma: No Other PMH: medical Mitral valve infection. surgery , PUD,. PTSD, shoulder surg. - Social History Smoking Status: Current every day smoker HPI/ROS: HPI CHIEF COMPLAINT: PTSD, anxiety, suicidal ideation HISTORY OF PRESENT ILLNESS: This patient is a 51-year-old female, significant past medical history for PTSD, anxiety, presents emergency room on M1 hold by police after she called 911 the crisis help line. Please make contact with her she states that she wants to . She tells me "please give me a medication to kill myself." She tells me her PTSD is acting up she is very anxious. Past Medical History: PTSD, anxiety, peptic ulcer disease Past Surgical History: No recent surgery Social History: Smokes tobacco, occasional alcohol denies illicit drug Family History: Noncontributory ROS REVIEW OF SYSTEMS: A comprehensive 10 point review of systems is otherwise negative aside from elements mentioned in the history of present illness. Exam Constitutional anxious, appears well nontoxic, triage nursing summary reviewed , vital signs reviewed, awake/alert. Eyes normal conjunctivae and sclera, EOMI, PERRLA. HENT normal inspection, atraumatic, moist mucus membranes, no epistaxis, neck supple/ no meningismus, no raccoon eyes. Respiratory clear to auscultation bilaterally, normal breath sounds, no respiratory distress, no wheezing. Cardiovascular rate normal, regular rhythm, no murmur, no edema, distal pulses normal. Gastrointestinal soft, non-tender, no rebound, no guarding, normal bowel sounds, no distension, no pulsatile mass. Genitourinary no CVA tenderness. Musculoskeletal no midline vertebral tenderness, full range of motion, no calf swelling, no tenderness of extremities, no meningismus, good pulses, neurovascularly intact. Skin pink, warm, & dry, no rash, skin atraumatic. Neurologic awake, alert and oriented x 3, AAOx3, moves all 4 extremities equally, motor intact, sensory intact, CN II-XII intact, normal cerebellar, normal vision, normal speech. Psychiatric anxious, agitated, yelling Heme/Lymph/Immune no lymphadenopathy. Differential Diagnosis: PTSD, anxiety, suicidal ideation. Medical Decision Making: Plan for this patient patient on M1 hold. Will need medical clearance blood draw, IM Zyprexa 10 mg ordered. Re-evaluation: 0144AM: Patient is resting comfortably sleeping. She received 10 mg IM Zyprexa. Was quite agitated upon arrival. Now doing well. Blood work reviewed. Vital signs reviewed. Minimal elevated alcohol. On M1 hold needs evaluation. 0648AM: Patient has been sleeping. No acute distress. Resting comfortably. On M1 hold for suicidal ideation. PTSD. Patient signed over to Dr. Hannah at 7:00 a.m. shift change. Patient pending mental health evaluation. (Luis Armando Deng) Constitutional: Initial Vital Signs Temperature (C) 37.0 C 01/26/17 23:32 Heart Rate 110 H 01/26/17 23:32 Respiratory Rate 16 01/26/17 23:32 Blood Pressure 157/105 H 01/26/17 23:32 O2 Sat (%) 95 01/26/17 23:32 O2 Delivery Mode Room Air Allergies/Adverse Reactions: codeine [Codeine] Allergy (Severe, Verified 01/19/17 20:39) THROAT SWELLING diazepam [From Valium] Allergy (Severe, Verified 01/19/17 20:39) SWELLING meperidine HCl [From Demerol] Allergy (Severe, Verified 01/19/17 20:39) SWELLING iodine Allergy (Intermediate, Verified 01/19/17 20:39) Hives Penicillins Allergy (Intermediate, Verified 01/19/17 20:39) Hives morphine Allergy (Unknown, Verified 01/19/17 20:39) Home Medications: Medication Instructions Recorded Metoprolol Succinate Xr 12/20/16 Prazosin HCl 12/20/16 Proair Hfa 12/20/16 traZODone 150MG (*) 12/20/16 FLUoxetine 01/12/17 GABAPENTIN 01/12/17 Ondansetron 01/12/17 QUEtiapine FUMARATE 01/12/17 Medical Decision Making ED Course/Re-evaluation: Patient has been agitated and at 1:30 p.m. we gave the patient further Zyprexa for her agitation. She has been evaluated by mental health and they would like to continue the M1 hold and look for placement for this patient (Charles Hannah) Other Provider: I assumed care of this patient from Dr Hannah at 3pm, change of shift. We are awaiting placement. Patient requested nicotine replacement patch, which was given. Patient was accepted at Patient requests that I evaluate her right knee. Reports falling on it several days ago. On exam, no ecchymosis or abrasions, but moderate swelling is present. No erythema. FROM. Xray obtained; no fracture seen but effusion present. Patient given a knee immobilizer. Patient also asked that I evaluate her right hand where she punched a wall. Several abrasion present over the 4th and 5th MCPs. Xray obtained; no fracture. Patient medically cleared for transfer. (Frida Beyer) - Data Points Laboratory Results: Laboratory Results 01/27/17 00:11 01/27/17 00:11 Medications Given: Discontinued Medications Nicotine (Nicoderm Cq) 21 mg TD EDNOW ONE Stop: 01/27/17 21:05 Last Admin: 01/27/17 21:20 Dose: 21 mg Olanzapine (Zyprexa Im Injection) 10 mg IM EDNOW ONE Stop: 01/26/17 23:27 Last Admin: 01/26/17 23:40 Dose: 10 mg Departure - Departure Disposition: Other Psych, Not [place] Clinical Impression: PTSD (post-traumatic stress disorder), Anxiety Knee sprain Qualifiers: Encounter type: initial encounter Involved ligament of knee: unspecified ligament Laterality: right Qualified Code(s): S83.91XA - Sprain of unspecified site of right knee, initial encounter Condition: Good Referrals: Patient,NotPresent [Unknown] - As per Instructions
[2017-01-27 00:23] LABS: % IMMATURE GRANULYOCYTES 0.3 % (0.0-1.1); ABSOLUTE IMMATURE GRANULOCYTES 0.02 10^3/uL (0.00-0.10); ADD DIFF? NO; ADD MORPH? NO; ADD SCAN? NO; ATYPICAL LYMPHOCYTE FLAG 20 (0-99); FRAGMENT RBC FLAG 0 (0-99); HEMATOCRIT 37.4 % (38.0-47.0); LEFT SHIFT FLG 0 (0-99); LIPEMIA HEMOLYSIS FLAG 80 (0-99); MEAN CELL HEMOGLOBIN 30.5 pg (27.9-34.1); MEAN CELL HEMOGLOBIN CONCENTR. 32.1 g/dL (32.4-36.7); MEAN CELL VOLUME 94.9 fL (81.5-99.8); MEAN PLATELET VOLUME 9.4 fL (8.7-11.7); PLATELET CLUMPS FLAG 10 (0-99); PLATELET COUNT 255 10^3/uL (150-400); RED BLOOD CELL COUNT 3.94 10^6/uL (4.18-5.33); RED CELL DISTRIBUTION WIDTH 13.9 % (11.5-15.2)
[2017-01-27 00:57] LABS: ANION GAP 11 mEq/L (8-16); CALCIUM 9.6 mg/dL (8.5-10.4); CARBON DIOXIDE 23 mEq/l (22-31); CHLORIDE 109 mEq/L (97-110); CREATININE 0.9 mg/dL (0.6-1.0); ETHANOL SERUM 67 mg/dL (0-10); GLOMERULAR FILTRATION RATE > 60; GLUCOSE 95 mg/dL (70-100); POTASSIUM 3.7 mEq/L (3.5-5.2); SALICYLATE < 1.0 mg/dL (2.0-20.0); SODIUM 143 mEq/L (134-144)
[2017-01-27] MEDS ORDERED: OLANZapine 10 MG/2 ML VIAL IM ONE (11:33)
[2017-01-27 17:36] VITALS: BP 124/74; PULSE 69; RESP 18; O2SAT 96
[2017-01-27] MEDS ORDERED: NICOTINE 21 MG/24 HR PATCH TD ONE (21:04)
[2017-01-27 21:47] VITALS: TEMP 98.2
== END 2017-01-27 22:37 ==
DX: S83.91XA Sprain of unspecified site of right knee, initial encounter (principal); F43.10 Post-traumatic stress disorder, unspecified; F41.9 Anxiety disorder, unspecified; J45.909 Unspecified asthma, uncomplicated; F17.200 Nicotine dependence, unspecified, uncomplicated; W18.39XA Other fall on same level, initial encounter; Y99.8 Other external cause status
CPT/HCPCS: 80305; G0480; L1830

== ENCOUNTER 2017-11-04 14:02 | Emergency (ER) | payer MEDICAID ==
--- NOTE | 2017-11-04 14:36 | EDPHY ---
General - History Smoking Status: Current every day smoker Time Seen by Provider: 11/04/17 14:26 Narrative: CHIEF COMPLAINT: Left knee pain HISTORY OF PRESENT ILLNESS: Patient complains of left knee pain. This started 2 weeks ago after falling in the shower. She says she lost consciousness and injured her knee. She has not know exactly what happened but she hurt it while in the shower. She is not here for the loss of consciousness, she is only complaining of left knee pain that she wants evaluated. It is severe. It is refractory to [id number] medications. It is worse with any kind of palpation movement. It radiates up and down the entire leg. There is no numbness or tingling. She did ambulate into the emergency department. She complains of no injury elsewhere for this. No other associated complaints or modifying factors. ESTABLISHED ORTHOPEDIST: Does not recall their name. Previous shoulder surgery with some REVIEW OF SYSTEMS: Ten systems reviewed and are negative unless otherwise noted in the HPI PAST MEDICAL HISTORY: PTSD, anxiety, psychosis PAST SURGICAL HISTORY: Orthopedic surgeries SOCIAL HISTORY: Smoker. Currently on disability FAMILY HISTORY: Noncontributory EXAMINATION General Appearance: Alert, no distress HEENT: Normocephalic atraumatic. Pupils equal round reactive. Cardiovascular: Symmetric DP PT pulses 2+. Good signs of perfusion Neurological: A&O, sensory symmetric, strength symmetric in the lower extremities. Skin: Warm and dry, no rash. No petechiae. No purpura. No laceration or puncture of the lower extremity. Extremities: Tenderness out of proportion to examination of the left knee at all aspects. There is no deformity or crepitus. There is no instability. Negative drawer test. Negative Lindsey. No tenderness of the left greater trochanter or hip. No tenderness of the left midfoot or calcaneus. Range of motion of the knees symmetric. Psychiatric: Mood and affect normal DIFFERENTIAL DIAGNOSES: Including but not limited to fracture, sprain, strain, meniscus injury, collateral ligament injury MDM: 2:30 p.m. Injury to the left knee 2 weeks ago from fall. She has pain out of proportion to examination of the entire knee. There is no bony tenderness to the left hip or ankle. No bony tenderness of the left foot or calcaneus. I have ordered x- ray of the knee to rule out fracture. I do not feel she warrants any further imaging or intervention at this time. She informs that he is already taking anti-inflammatories just prior to arrival. 3:30 p.m. X-rays negative for acute osseous finding. There is a small suprapatellar effusion noted. I have re-evaluated the patient and discussed this. She has difficulty ambulating due to pain, thus we will provide crutches and short course of pain medication. Recommend ice and elevation. Recommend anti- inflammatories. I recommend she follow up with Orthopedics later this week for re-evaluation and likely outpatient MRI. I provided this information to her and also recommend that she contact her primary care physician. She is comfortable this plan and discharged home in stable condition. SUPERVISION: This patient was independently evaluated without direct involvement of or examination by the attending physician. ED Precautions: Worsening pain. Erythema, edema, cyanosis, pallor, paresthesia or anesthesia. (Javy Bonds) Medical Decision Making: I did not see this patient while she was in the emergency department. However her care was discussed with the PA while the patient was in the department. I agree with treatment plan and management (Charles Hannah) - Diagnostics Imaging Results: Imaging Impressions Knee X-Ray 11/04/17 14:36 Impression: 1. Minor degenerative changes, with no acute or subacute osseous abnormality. 2. Small suprapatellar joint effusion. If there is further clinical concern regarding the patient's symptoms, MR imaging could be considered. - Objective Vital Signs: Initial Vital Signs Temperature (C) 36.8 C 11/04/17 14:05 Heart Rate 102 H 11/04/17 14:05 Respiratory Rate 20 11/04/17 14:05 Blood Pressure 159/93 H 11/04/17 14:05 O2 Sat (%) 95 11/04/17 14:05 O2 Delivery Mode Room Air Allergies/Adverse Reactions: codeine [Codeine] Allergy (Severe, Verified 11/04/17 14:03) THROAT SWELLING diazepam [From Valium] Allergy (Severe, Verified 11/04/17 14:03) SWELLING meperidine HCl [From Demerol] Allergy (Severe, Verified 11/04/17 14:03) SWELLING iodine Allergy (Intermediate, Verified 11/04/17 14:03) Hives Penicillins Allergy (Intermediate, Verified 11/04/17 14:03) Hives morphine Allergy (Unknown, Verified 11/04/17 14:03) Home Medications: Medication Instructions Recorded Atorvastatin Calcium 11/04/17 [place] Carbonate 11/04/17 Metoprolol Oral Susp (*) 11/04/17 Prazosin HCl 11/04/17 QUEtiapine FUMARATE 11/04/17 oxyCODONE HCL/ACETAMINOPHEN 1 each PO Q4-6PRN PRN #9 tablet 11/04/17 [Percocet 5-325 mg Tablet] Departure - Departure Disposition: Home, Routine, Self-Care Clinical Impression: Suprapatellar bursitis of left knee Left knee sprain Qualifiers: Encounter type: initial encounter Involved ligament of knee: unspecified ligament Qualified Code(s): S83.92XA - Sprain of unspecified site of left knee, initial encounter Condition: Good Instructions: Knee Sprain (ED) Additional Instructions: 1. Weightbearing as tolerated with crutches as needed 2. Contact Orthopedics for outpatient follow-up 3. Ibuprofen 400 mg every 8 hr as needed 4. Pain medication as prescribed as needed 5. ED precautions as discussed Referrals: [facility],. [Clinic] - As per Instructions Varun Mejia MD [Medical Doctor] - As per Instructions Prescriptions: oxyCODONE HCL/ACETAMINOPHEN [Percocet 5-325 mg Tablet] 1 each PO Q4-6PRN PRN #9 tablet PRN Reason: Pain, Breakthrough
[2017-11-04 16:01] VITALS: BP 140/88
== END 2017-11-04 15:59 | disposition home or self-care (01) ==
DX: S83.92XA Sprain of unspecified site of left knee, initial encounter (principal); M70.42 Prepatellar bursitis, left knee; F17.200 Nicotine dependence, unspecified, uncomplicated; W18.2XXA Fall in (into) shower or empty bathtub, initial encounter

== ENCOUNTER → 2017-12-15 | Outpatient (CLI) | payer MEDICAID | LOC: FIMAGING 16:43 | PROVIDERS: ATTEND Orthopaedic Surgery | DX: M23.262 Derangement of other lateral meniscus due to old tear or injury, left knee (principal); M25.462 Effusion, left knee ==

== ENCOUNTER 2018-03-07 15:47 | Emergency (ER) | payer OTHER, MEDICAID ==
[2018-03-07] MEDS ORDERED: IBUPROFEN 600 MG TAB PO ONE (16:09)
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
[2018-03-07 17:06] VITALS: BP 133/85
== END 2018-03-07 17:05 | disposition home or self-care (01) ==
LOC: EDUNIT#
DX: S06.0X0A Concussion without loss of consciousness, initial encounter (principal); F17.200 Nicotine dependence, unspecified, uncomplicated; V03.10XA Pedestrian on foot injured in collision with car, pick-up truck or van in traffic accident, initial encounter; Y92.410 Unspecified street and highway as the place of occurrence of the external cause; Y99.8 Other external cause status; Y93.89 Activity, other specified

== ENCOUNTER → 2018-06-28 | Outpatient (CLI) | payer MEDICAID, OTHER ==
--- NOTE | 2018-06-29 18:32 | CPEKG ---
Test Reason : preop Blood Pressure : / mmHG Vent. Rate : 080 BPM Atrial Rate : 082 BPM P-R Int : 143 ms QRS Dur : 081 ms QT Int : 371 ms P-R-T Axes : 032 012 027 degrees QTc Int : 428 ms Sinus rhythm Confirmed by Delmy Martel ([id number]) on 06/29/2018 6:31:30 PM Referred By: Confirmed By:Delmy Martel
== END ==
LOC: FPAT 10:26
PROVIDERS: ATTEND Specialist
DX: Z01.810 Encounter for preprocedural cardiovascular examination (principal)

== ENCOUNTER 2018-06-29 10:40 | Day surgery (SDC) | payer MEDICAID, OTHER ==
[2018-06-29] MEDS ORDERED: LR 1,000 ML IV ONE (11:06)
[2018-06-29] MEDS ORDERED: LIDOCAINE 2% JELLY 20 ML (UROJECT) ONE (11:49)
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
[2018-06-29] MEDS ORDERED: PROPOFOL/EMULSION 500 MG/50 ML BOTTLE IV ONE (12:25)
[2018-06-29] MEDS ORDERED: ceFAZolin 2 GM/DEXTROSE 100 ML IV ONE (13:00)
[2018-06-29] MEDS ORDERED: BOTULINUM TOXIN TYPE A 100 UNIT VIAL MISC ONE (13:03)
--- NOTE | 2018-06-29 13:06 | PDHPUP ---
History & Physical Update H&P update statement: This history and physical update is based on an assessment of the patient which was completed after admission or registration (within 24 hours), but prior to the surgery/procedure. H&P update: H&P reviewed & patient examined, no change in patient's condition since H&P completed
--- NOTE | 2018-06-29 13:10 | GHP ---
ADMISSION DIAGNOSIS: Nocturia, urgency, frequency, and urge incontinence. HISTORY OF PRESENT ILLNESS: This is a 52-year-old lady referred from Silva Valadez DO for lower urinary tract symptoms that have not been treated adequately with Toviaz or Myrbetriq. At the present time, she is admitted as an outpatient for Botox nerve denervation of the bladder. PAST MEDICAL HISTORY: Urinary stress incontinence, gastric reflux, hypertension , hypercholesterolemia. PAST SURGICAL HISTORY: Atrial septal occluder, hysterectomy, shoulder. MEDICATIONS: Albuterol, cyproheptadine, gabapentin, lithium, Nexium, prazosin, ProAir, risperidone, Toviaz. ALLERGIES: Codeine, Demerol, iodine, morphine, penicillin, Seroquel, Valium. FAMILY HISTORY: Positive for heart disease, anemia, and diabetes. SOCIAL HISTORY: Nondrinker. Current smoker. REVIEW OF SYSTEMS: Negative GI and endocrine. PHYSICAL EXAMINATION: VITAL SIGNS: Stable. CHEST: Clear. HEART: Regular rate and rhythm. ABDOMEN: Normal. No organomegaly, rebound, or guarding. EXTREMITIES: Lower extremities are normal at the present time. PLAN: She is to undergo Botox bladder injections. /[id number]/MODL MTDD
[2018-06-29] MEDS ORDERED: fentaNYL 100 MCG/2 ML INJ ONE (13:41)
[2018-06-29] MEDS ORDERED: ACETAMINOPHEN 500 MG TAB PO PRN (13:53)
[2018-06-29] MEDS ORDERED: LR 500 ML IV PRN (13:53)
[2018-06-29] MEDS ORDERED: DEXAMETHASONE 4 MG/ML VIAL IVP PRN (13:53)
[2018-06-29] MEDS ORDERED: LABETALOL HCL 5 MG/ML 20 ML MDV IVP PRN (13:53)
[2018-06-29] MEDS ORDERED: NALOXONE HCL 0.4 MG/ML INJ IVP PRN (13:53)
[2018-06-29] MEDS ORDERED: oxyCODONE IR 5 MG TAB PO PRN (13:53)
[2018-06-29] MEDS ORDERED: ONDANSETRON 4 MG/2 ML VIAL IVP PRN (13:53)
[2018-06-29] MEDS ORDERED: MEPERIDINE 25 MG/0.5 ML AMP IVP PRN (13:53)
--- NOTE | 2018-06-29 14:09 | POSTOPPROG ---
Post Op Note Date of Operation: 06/29/18 (dictated) Surgeon: Morteza Banks Anesthesia: LMA Pre-op Diagnosis: urge incontinence Procedure: botox denervation of bladder Inf/Abcess present in the surg proc area at time of surgery?: No EBL: Minimal Complications: none--100 units of botox diluted in 10 ml sterile fluid and 20 injections performed Specimen(s): none
[2018-06-29 14:33] VITALS: BP 113/72
--- NOTE | 2018-06-29 15:05 | GOP ---
DATE OF OPERATION: 06/29/2018 SURGEON: Morteza Banks MD PREOPERATIVE DIAGNOSIS: Urge incontinence refractory to medications. POSTOPERATIVE DIAGNOSIS: Urge incontinence refractory to medications. PROCEDURE PERFORMED: Botox denervation of the bladder. FINDINGS: DESCRIPTION OF PROCEDURE: This lady underwent general anesthesia. After being prepped, draped in no rmal sterile fashion, appropriate time-out, we injected 100 units of Botox in the bladder via a needl e injected into the bladder muscle just above the trigone and then in the lateral sites going from ri ght to left approaching the base of the bladder. A total of the 100 units was injected. At the end of the procedure, there was minimal bleeding. She tolerated the procedure well. She will be dischar [facility] home to have followup with me in 3 weeks to assess the effect of the Botox. /[id number]/MODL
== END 2018-06-29 14:59 | disposition home or self-care (01) ==
LOC: FSGY 10:40
PROVIDERS: ATTEND Specialist
PROC: 3E0K3GC Introduction of Other Therapeutic Substance into Genitourinary Tract, Percutaneous Approach (ICD-10-PCS; principal; 2018-06-29 12:30)
DX: N39.41 Urge incontinence (principal)
CPT/HCPCS: J0585; J0690; J2704; J3010

== ENCOUNTER → 2018-09-16 | Outpatient (CLI) | payer MEDICAID | LOC: FIMAGING 12:17 | PROVIDERS: ATTEND Family Medicine | DX: M50.30 Other cervical disc degeneration, unspecified cervical region (principal); M12.88 Other specific arthropathies, not elsewhere classified, other specified site; M75.91 Shoulder lesion, unspecified, right shoulder; S43.431A Superior glenoid labrum lesion of right shoulder, initial encounter; M25.811 Other specified joint disorders, right shoulder ==